=== PATIENT | female | born 1970 | race Caucasian/White ===

== ENCOUNTER 2020-05-17 06:43 | Day surgery (SDC) | payer MEDICAID, SELFPAY ==
[2020-05-10 10:50] LABS: BASOPHIL % 0.5 % (0.2-1.3); PLATELET COUNT 292 x10^3mcL (179-408); RED CELL DISTRIBUTION WIDTH 13.9 % (12.3-17.7)
[2020-05-10 11:00] LABS: ALBUMIN 3.8 g/dL (3.4-5.0); ALKALINE PHOSPHATASE 70 U/L (46-116); ALT/SGPT 25 U/L (14-59); AST/SGOT 16 U/L (15-37); BILIRUBIN TOTAL 0.27 mg/dL (0.20-1.00); CALCIUM 8.8 mg/dL (8.5-10.1); CARBON DIOXIDE 27.7 mmol/L (21-32); CHLORIDE SERUM 107 mmol/L (98-107); CREATININE SERUM 0.7 mg/dL (0.6-1.0); GFR1 > 60 mL/min; GLUCOSE SERUM 106 mg/dL (74-106); POTASSIUM SERUM 4.2 mmol/L (3.5-5.1); SODIUM SERUM 142 mmol/L (136-145); TOTAL PROTEIN, SERUM 7.2 g/dL (6.4-8.2)
[~2020-05-17] VITALS: Ht 154.9 cm; Wt 68.0 kg
[2020-05-17 07:42] VITALS: BP 120/68
[2020-05-17 07:56] VITALS: BP 120/68
[2020-05-17 18:29] VITALS: BP 148/68
== END 2020-05-17 18:15 | disposition home or self-care (01) ==
LOC: DS 06:43 → MA 09:00 → DS 09:00 → OR 12:00 → DS 18:15
PROVIDERS: ATTEND Surgery
DX: C50.912 Malignant neoplasm of unspecified site of left female breast (principal); Z20.828 Contact with and (suspected) exposure to other viral communicable diseases
CPT/HCPCS: 77065; 88329; 88344; 88361; J0690; J1170; J2001; J2250; J2405; J2704; J3010; J3490; J7120; Q9968; U0003

== ENCOUNTER 2020-05-22 13:54 | Emergency (ER) | payer MEDICAID ==
[~2020-05-22] VITALS: Ht 154.9 cm; Wt 70.3 kg
[2020-05-22 14:09] VITALS: BP 120/80; Ht 154.9 cm; Wt 70.3 kg
== END 2020-05-22 16:16 | disposition home or self-care (01) ==
LOC: ED 13:54
DX: L25.9 Unspecified contact dermatitis, unspecified cause (principal)